=== PATIENT | male | born 1955 | race Caucasian/White ===

== ENCOUNTER 2023-09-19 17:07 | Observation (INO) | payer MEDICARE, SELFPAY ==
[2023-09-19] VITALS (10 sets, daily range): BP systolic 139–181; BP diastolic 74–105; PULSE 58–93; RESP 16–30; TEMP 36.2–36.8; O2SAT 95–98; BMI 24.4
--- NOTE | 2023-09-19 06:59 | DI.MRI.S_ITS ---
PROCEDURE: MR HEAD/BRAIN WO CON INDICATIONS: TIA TECHNIQUE: Non-contrast axial T1 spin echo, axial T2 fast spin echo, sagittal and axial FLAIR, coronal T2 fast spin echo, axial gradient echo, axial diffusion and ADC through the brain. COMPARISON: [facility], CT, CT ANGIO HEAD AND NECK, 09/19/2023, 17:26. [facility], CT, CT HEAD/BRAIN WO CON, 09/19/2023, 17:26. FINDINGS: Image quality: Excellent. CSF spaces: Ventricles appear symmetric in size and shape. Basal cisterns are patent. No extra-axial fluid collections. Brain: No intracranial bleeds or mass effects. There is cerebral volume loss for age. There are periventricular white matter T2 hyperintensity, most likely secondary to chronic small vessel ischemic changes. Brainstem appears normal. Diffusion-weighted images show no acute infarct. No chronic ischemic insults. Normal intravascular flow voids are present. Skull and face: Calvarial bone marrow is normal in signal. Orbits are normal. Sinuses: Mild ethmoid and maxillary sinus mucosal thickening. The mastoids are clear. IMPRESSION: 1. No acute intracranial abnormalities. 2. Cerebral volume loss. There are foci of T2 hyperintensity, most likely secondary to chronic microvascular ischemic changes. A differential diagnosis is a demyelinating process such as multiple sclerosis. Recommend clinical correlation and comparison to prior exams, if available. 3. Mild paranasal sinus disease. Dictated by: Charisse Partida M.D. on 09/20/2023 at 7:46 Approved by: Charisse Partida M.D. on 09/20/2023 at 7:50
--- NOTE | 2023-09-19 17:18 | DI.CT.S_ITS ---
PROCEDURE: CT ANGIO HEAD AND NECK INDICATIONS: forgetful TECHNIQUE: After the administration of intravenous contrast, 1 mm thick sections acquired from the aortic arch through the [place] of [place]. 3-dimensional egrgwpf-pjpvtddqq-wuvkcvdkgj (MIP) and/or volume rendering reformats were acquired of the central intracranial vasculature and neck separately. For radiation dose reduction, the following was used: automated exposure control, adjustment of mA and/or kV according to patient size. COMPARISON: None. FINDINGS: Image quality: Diagnostic. BRAIN: Please refer to same day CT head. HEAD CT ANGIOGRAPHY: Anterior circulation: Intracranial internal carotid arteries are normal in size and flow with atherosclerotic calcifications. The flow within the paired anterior cerebral arteries is normal and symmetric. The flow within the middle cerebral arteries is normal and symmetric. The anterior communicating artery is seen. No aneurysms are seen. Posterior circulation: Visualized portions of the vertebral arteries demonstrate normal caliber, and join to form a normal appearing basilar artery. origin of the right [employer] REPRESENTATIVE Flow within the posterior cerebral arteries is normal and symmetric. No aneurysms are seen. NECK CT ANGIOGRAPHY: Carotid system: The great vessels demonstrate a conventional anatomy as they arise from the aortic arch. The origins of the common carotid arteries appear patent. The common carotid arteries demonstrate normal caliber and courses. The bifurcation regions are both widely patent. The internal carotid arteries demonstrate normal calibers and courses. Posterior circulation: The origins of the vertebral arteries both appear widely patent. The more superior extracranial portions of both vertebral arteries also demonstrate normal courses and calibers. They join to form a normal appearing basilar artery. Soft tissues: Visualized neck soft tissues demonstrate no suspicious abnormalities. Bones: No suspicious bony lesions. Degenerative changes of the spine. Visualized cervical spine appears normally aligned. IMPRESSION: No significant intracranial arterial abnormality is seen. No significant abnormality is seen within the arteries of the neck. Any quantitative measurements of stenosis were performed using NASCET criteria. Dictated by: Clive Weston M.D. on 09/19/2023 at 18:14 Approved by: Clive Weston M.D. on 09/19/2023 at 18:19
--- NOTE | 2023-09-19 17:18 | DI.CT.S_ITS ---
PROCEDURE: CT HEAD/BRAIN WO CON INDICATIONS: forgetfullness TECHNIQUE: Noncontrast 4.5 mm thick angled axial sections acquired from the foramen magnum to the vertex, with coronal and sagittal reformats. For radiation dose reduction, the following was used: automated exposure control, adjustment of mA and/or kV according to patient size. COMPARISON: None. FINDINGS: Image quality: Diagnostic. CSF spaces: Basal cisterns are patent. No extra-axial fluid collections. The ventricles are symmetric in size and shape. Brain: No intracranial bleeds or masses. There is cerebral volume loss for age, with resultant ventricular and sulcal prominence. There are periventricular and deep white matter chronic small vessel ischemic changes. There is intracranial internal carotid artery atherosclerosis. Skull and face: Calvarium and visualized facial bones appear intact, without suspicious lesions. Sinuses: Partial opacification of the right paranasal sinuses. The mastoids are clear. IMPRESSION: No acute intracranial pathology. Dictated by: Clive Weston M.D. on 09/19/2023 at 18:13 Approved by: Clive Weston M.D. on 09/19/2023 at 18:14
[2023-09-19 17:31] LABS: Add Manual Diff / Slide Review NO; Basophils Absolute Auto 0 /uL (0-100); Basophils Percent Auto 0.4 % (0-2); Eosinophils Absolute Auto 200 /uL (0-450); Eosinophils Percent Auto 1.9 % (2-4); Hematocrit 39.5 % (41-53); Hemoglobin 12.7 g/dL (13.5-17.5); Lymphocytes Absolute Auto 1000 /uL (1100-4500); Lymphocytes Percent Auto 10.4 % (25-40); Mean Corpuscular HGB Conc 32.2 % (30-36); Mean Corpuscular Hemoglobin 26.6 PG (26-34); Mean Corpuscular Volume 82.5 fL (80-100); Monocytes Absolute Auto 600 /uL (0-900); Monocytes Percent Auto 6.9 % (3-14); Neutrophils Absolute Auto 7600 /uL (1500-7000); Neutrophils Percent Auto 80.4 % (50-75); Platelet Count 304 X10^3/uL (150-400); Red Blood Cell Count 4.79 X10^6/uL (4.5-5.9); Red Cell Distribution Width 13.4 % (11.6-14.8); White Blood Cell Count 9.4 X10^3/uL (4.5-11.0)
[2023-09-19 17:34] LABS: INR 1.1 (0.9-1.3); Prothrombin Time 12.1 SECONDS (9.4-12.5)
[2023-09-19 17:36] LABS: PTT Partial Thromboplastin Tim 34 SECONDS (25.1-36.5)
[2023-09-19 17:38] LABS: Alanine Aminotransferase 19 IU/L (<50); Albumin 4.2 g/dL (3.5-5.0); Albumin Globulin Ratio 1.4 (1.0-2.8); Alkaline Phosphatase 82 U/L (38-126); Aspartate Aminotransferase 25 IU/L (17-59); Bilirubin Total 0.8 mg/dL (0.2-1.3); Blood Urea Nitrogen 16 mg/dL (9-20); Calcium 9.1 mg/dL (8.4-10.2); Carbon Dioxide 22 mmol/L (22-32); Chloride 109 mmol/L (98-107); Creatine Kinase 189 U/L (55-170); Estimated Glomerular Filt Rate > 60 mL/min (>60); Ethanol (ETOH) < 10 mg/dL; Globulin 3.1 g/dL (1.7-4.1); Glucose 114 mg/dL (80-110); HEMOLYSIS < 15 (0-50); Potassium 3.5 mmol/L (3.4-5.1); Sodium 140 mmol/L (137-145); Total Protein 7.3 g/dL (6.3-8.2)
[2023-09-19 17:43] LABS: COVID19 -Nasal RAPID Negative (Negative)
[2023-09-19 17:49] LABS: Troponin I < 0.012 ng/mL (0.01-0.034)
--- NOTE | 2023-09-19 18:15 | ED_ITS ---
HPI - Neuro Symptoms/Deficit General Chief Complaint: Neuro Symptoms/Deficit Stated Complaint: forgetfulness/ BP 185/105 Time Seen by Provider: 09/19/23 17:18 Source: patient Mode of arrival: Ambulatory History of Present Illness HPI Narrative: 68-year-old male with history of ulcerative colitis, history of hypertension currently untreated with complaint of confusion which after description sounds like expressive aphasia. Started around noon patient family both noticed he was not able to say what he wanted to. Patient states he knew what he wanted to say could not get it out. They checked blood pressure at home was 185/105. He has had 1 prior episode 3 or 4 years ago where he was very hypertensive and they believe he a seizure and did not quite wake up? patient states he has not had any more episodes like that. He describes a mild headache today no vision changes no numbness tingling or weakness, no issues with balance. States no obvious facial droop. No slurred speech according to him and family. Chest pain, no nausea or vomiting, new issues with bowel movements or urination patient states he is on medication for ulcerative colitis. No anticoagulants. Was taking antihypertensives until 6 months ago in his physician said his blood pressure was appropriate and did not need them. He has never been on any dyslipidemia medication or diabetes medication. Patient does not smoke, occasional alcohol, no recreational drugs. On Anticoagulants: No Related Data Home Medications Medication Instructions Recorded Confirmed huvxjw-bxgeboin-odnrynn 1 cap PO TIDWMEAL 09/19/23 09/19/23 24,000-76,000-120,000 unit capsule,delayed rel (Creon) omeprazole 20 mg capsule,delayed 40 mg PO QAM 09/19/23 09/19/23 release Allergies Allergy/AdvReac Type Severity Reaction Status Date / Time No Known Drug Allergies Allergy Verified 09/19/23 18:51 Review of Systems Review of Systems ROS Unobtainable: All systems reviewed & are unremarkable except as noted in HPI and below Hematologic/Lymphatic On Anticoagulants: No Patient History Social History household members: spouse Smoking Status: Never smoker Smoking Status: Never smoker alcohol intake frequency: a few times a month Substance Use Type: does not use Exam Narrative Exam Narrative: GEN: well nourished, well appearing male, alert and oriented x 3, patient appears to be in mild distress. HEENT: Atraumatic, pupils are equal round reactive to light, extraocular movements are intact, nares are clear, TMs are clear with no fluid, there is no conjunctival pallor. Throat is clear without any exudates, erythema, tonsillar enlargement or uvular deviation, no facial droop. HEART: Regular rate and rhythm without murmur, clicks, rubs. LUNGS:Lungs clear to auscultation, no wheezes, rales, crackles, chest moves symmetrically ABD:bowel sounds normal, soft, non-tender, no guarding, rebound, rigidity, no masses noted, no hepatosplenomegaly MSCL: Non-tender, no muscle atrophy, muscles strength 5/5 upper and lower extremities, full range of motion, normal gait NEURO:CN 2-12 intact, sensation normal, reflexes 2/4 upper and lower extremities. finger nose finger test normal, heel jones test normal Initial Vital Signs Initial Vital Signs: Vital Signs Pulse Rate 83 09/19/23 17:14 Respiratory Rate 18 09/19/23 17:14 Scores NIH Stroke Scale Level of Conciousness: Alert, keenly responsive Ask month/age: Answers both questions correctly. Open/close eyes, close hand: Performs both tasks correctly Best gaze horizontal: Normal Visual montes: No visual loss Facial palsy: Normal symetrical movement Left arm drift: No drift for full 10 sec Right arm drift: No drift for full 10 sec Left leg drift: No drift for full 5 sec Right leg drift: No drift for full 5 sec Limb ataxia: Absent Sensory on face/arms/legs: Normal, no sensory loss Best language: No aphasia, normal Dysarthria: Normal Extinction or inattention: No abnormality Total NIH Stroke scale score: 0 Course Orders Ordered: ED Orders 09/19/23 17:18 CT angio head and neck Stat CT head/brain wo con Stat EKG-12 Lead Stat 09/19/23 17:19 Complete Blood Count AUTO DIFF Stat Comprehensive Metabolic Panel Stat Ethanol (ETOH) Stat PTT Partial Thromboplastin Jovanni Stat Prothrombin Time INR Stat Troponin & CK Cardiac Panel Stat 09/19/23 17:25 COVID19 -Nasal RAPID Stat 09/19/23 21:30 Urine Drug Screen, Rapid Stat Acetaminophen (Acetaminophen 325 Mg Tablet) 650 mg PO Q6H PRN PRN Reason: Fever/Mild Pain (1-3) Albuterol (Albuterol 2.5 Mg/3 Ml Neb (Adult)) 2.5 mg INH [id number] PRN PRN Reason: Dyspnea Lipase/Protease/Amylase (Lipase/Protease/Amylase 11/05/23 Cap) 1 cap PO TIDWM [facility] Aspirin (Aspirin Ec 81 Mg Tablet) 81 mg PO DAILY [facility] Benzonatate (Benzonatate 100 Mg Capsule) 100 mg PO TID PRN PRN Reason: Cough Calcium Carbonate (Calcium Carbonate 500 Mg Tab) 1,000 mg PO Q4HR PRN PRN Reason: Dyspepsia Sodium Chloride (Normal Saline 0.9%) 1,000 mls @ 100 mls/hr IV CONT AYSE Last Admin: 09/19/23 19:28 Dose: 100 mls/hr Documented By: AT Melatonin (Melatonin 3 Mg Tablet) 9 mg PO BEDTIME PRN PRN Reason: insomnia Naloxone HCl (Naloxone 0.4 Mg/Ml Vial) 0.2 mg IV Q2MIN PRN PRN Reason: Opiate Reversal Ondansetron HCl (Ondansetron 4 Mg/2 Ml Inj) 4 mg IV Q8HR PRN PRN Reason: Nausea And Vomiting Pantoprazole Sodium (Pantoprazole Dr 40 Mg Tablet) 40 mg PO 0600 [facility] Discontinued Medications Aspirin (Aspirin 81 Mg Chew Tab) 324 mg PO NOW ONE Stop: 09/19/23 18:38 Last Admin: 09/19/23 18:45 Dose: 324 mg Documented By: CHUY Vital Signs Vital signs: Vital Signs - 8 hr 09/19/23 17:14 09/19/23 17:15 09/19/23 17:15 Temperature Pulse Rate 83 86 Respiratory Rate 18 18 Blood Pressure 181/105 H Pulse Oximetry 97 Oxygen Delivery Method 09/19/23 17:16 09/19/23 17:26 09/19/23 17:26 Temperature 98.2 F Pulse Rate 83 93 H Respiratory Rate 18 16 Blood Pressure 181/105 H 159/77 H Pulse Oximetry 95 98 Oxygen Delivery Method Room Air 09/19/23 17:30 09/19/23 17:30 09/19/23 17:48 Temperature Pulse Rate 93 H Respiratory Rate 30 H Blood Pressure 154/87 H 171/87 H Pulse Oximetry 98 Oxygen Delivery Method 09/19/23 17:48 09/19/23 18:00 09/19/23 18:00 Temperature Pulse Rate 82 87 Respiratory Rate 21 22 Blood Pressure 170/87 H Pulse Oximetry 98 98 Oxygen Delivery Method 09/19/23 18:30 09/19/23 18:30 Temperature Pulse Rate 79 Respiratory Rate 17 Blood Pressure 159/93 H Pulse Oximetry 98 Oxygen Delivery Method Room Air MDM - Neuro Symptoms/Deficit Lab Data 09/19/23 17:19 09/19/23 17:19 Labs: Lab Results 09/19/23 09/19/23 Range/Units 17:19 17:25 WBC 9.4 (4.5-11.0) X10^3/uL RBC 4.79 (4.5-5.9) X10^6/uL Hgb 12.7 L (13.5-17.5) g/dL Hct 39.5 L (41-53) % MCV 82.5 (80-100) fL MCH 26.6 (26-34) PG MCHC 32.2 (30-36) % RDW 13.4 (11.6-14.8) % Plt Count 304 (150-400) X10^3/uL Neut % (Auto) 80.4 H (50-75) % Lymph % (Auto) 10.4 L (25-40) % [place] % (Auto) 6.9 (3-14) % Eos % (Auto) 1.9 L (2-4) % Baso % (Auto) 0.4 (0-2) % Neut # (Auto) 7600 H (3956-3176) /uL Lymph # (Auto) 1000 L (7831-8743) /uL [place] # (Auto) 600 (0-900) /uL Eos # (Auto) 200 (0-450) /uL Baso # (Auto) 0 (0-100) /uL PT 12.1 (9.4-12.5) SECONDS INR 1.1 (0.9-1.3) APTT 34 (25.1-36.5) SECONDS Sodium 140 (137-145) mmol/L Potassium 3.5 (3.4-5.1) mmol/L Chloride 109 H (98-107) mmol/L Carbon Dioxide 22 (22-32) mmol/L BUN 16 (9-20) mg/dL Creatinine 1.07 (0.66-1.25) mg/dL Estimated GFR > 60 (>60) mL/min BUN/Creatinine Ratio 15.0 (6-22) Glucose 114 H (80-110) mg/dL Calcium 9.1 (8.4-10.2) mg/dL Total Bilirubin 0.8 (0.2-1.3) mg/dL AST 25 (17-59) IU/L ALT 19 (<50) IU/L Alkaline Phosphatase 82 (38-126) U/L Total Creatine Kinase 189 H (55-170) U/L Troponin I < 0.012 (0.01-0.034) ng/mL Total Protein 7.3 (6.3-8.2) g/dL Albumin 4.2 (3.5-5.0) g/dL Globulin 3.1 (1.7-4.1) g/dL Albumin/Globulin Ratio 1.4 (1.0-2.8) Triglycerides 39 (35-150) mg/dL Cholesterol 118 L (140-199) mg/dL LDL Cholesterol, Calc 35 (<100) mg/dL HDL Cholesterol 75 H (40-60) mg/dL TSH 1.84 (0.47-4.68) uIU/mL Ethyl Alcohol < 10 ( - 10) mg/dL SARS-CoV-2 (PCR) Negative (Negative) Point of Care Testing Glucose POC [address] scan - head: Radiologist's Impression: Close Head/Neck CTA 09/19/[address] (Signed) Clive Weston - 09/19/23 Launch?[place] [address] CT Scan Report Signed Patient: Gino Menjivar MR#: [id number] : 1955 Acct:[id number] Age/Sex: 68 / M Date of Service: 09/19/23 Loc: ED Accession Number: [id number] Procedure: CT head/brain wo con Ordering Provider: Tameka Heart D.O. PROCEDURE: CT HEAD/BRAIN WO CON INDICATIONS: forgetfullness TECHNIQUE: Noncontrast 4.5 mm thick angled axial sections acquired from the foramen magnum to the vertex, with coronal and sagittal reformats. For radiation dose reduction, the following was used: automated exposure control, adjustment of mA and/or kV according to patient size. COMPARISON: None. FINDINGS: Image quality: Diagnostic. CSF spaces: Basal cisterns are patent. No extra-axial fluid collections. The ventricles are symmetric in size and shape. Brain: No intracranial bleeds or masses. There is cerebral volume loss for age, with resultant ventricular and sulcal prominence. There are periventricular and deep white matter chronic small vessel ischemic changes. There is intracranial internal carotid artery atherosclerosis. Skull and face: Calvarium and visualized facial bones appear intact, without suspicious lesions. Sinuses: Partial opacification of the right paranasal sinuses. The mastoids are clear. IMPRESSION: No acute intracranial pathology. Dictated by: Clive Weston M.D. on 09/19/2023 at 18:13 Approved by: Clive Weston M.D. on 09/19/2023 at 18:14 CTA - brain/neck: Radiologist's Impression: Gino Menjivar??68??M??1955 ? Allergy/Adv: Not Recorded Close Head/Neck CTA (Signed) Clive Weston - 09/19/[address] (Signed) Clive Weston - 09/19/23 Launch?[place] [address] CT Scan Report Signed Patient: Gino Menjivar MR#: [id number] : 1955 Acct:[id number] Age/Sex: 68 / M Date of Service: 09/19/23 Loc: Accession Number: [id number] Procedure: CT angio head and neck Ordering Provider: Tameka Heart D.O. PROCEDURE: CT ANGIO HEAD AND NECK INDICATIONS: forgetful TECHNIQUE: After the administration of intravenous contrast, 1 mm thick sections acquired from the aortic arch through the [place] of [place]. 3-dimensional erylixn-ifxhcmwyx-jstvldbdza (MIP) and/or volume rendering reformats were acquired of the central intracranial vasculature and neck separately. For radiation dose reduction, the following was used: automated exposure control, adjustment of mA and/or kV according to patient size. COMPARISON: None. FINDINGS: Image quality: Diagnostic. BRAIN: Please refer to same day CT head. HEAD CT ANGIOGRAPHY: Anterior circulation: Intracranial internal carotid arteries are normal in size and flow with atherosclerotic calcifications. The flow within the paired anterior cerebral arteries is normal and symmetric. The flow within the middle cerebral arteries is normal and symmetric. The anterior communicating artery is seen. No aneurysms are seen. Posterior circulation: Visualized portions of the vertebral arteries demonstrate normal caliber, and join to form a normal appearing basilar artery. origin of the right [employer]OVEL[employer] CANDY [employer]KER Flow within the posterior cerebral arteries is normal and symmetric. No aneurysms are seen. NECK CT ANGIOGRAPHY: Carotid system: The great vessels demonstrate a conventional anatomy as they arise from the aortic arch. The origins of the common carotid arteries appear patent. The common carotid arteries demonstrate normal caliber and courses. The bifurcation regions are both widely patent. The internal carotid arteries demonstrate normal calibers and courses. Posterior circulation: The origins of the vertebral arteries both appear widely patent. The more superior extracranial portions of both vertebral arteries also demonstrate normal courses and calibers. They join to form a normal appearing basilar artery. Soft tissues: Visualized neck soft tissues demonstrate no suspicious abnormalities. Bones: No suspicious bony lesions. Degenerative changes of the spine. Visualized cervical spine appears normally aligned. IMPRESSION: No significant intracranial arterial abnormality is seen. No significant abnormality is seen within the arteries of the neck. Any quantitative measurements of stenosis were performed using NASCET criteria. Dictated by: Clive Weston M.D. on 09/19/2023 at 18:14 Approved by: Clive Weston M.D. on 09/19/2023 at 18:19 ECG Data Attestation: I personally reviewed and interpreted this ECG as follows: Prior ECG tracings: not available for review Interpretation: Sinus rhythm rate of 94 ND 190 QRS of 90 QTC of 470. No acute ST elevation or depression. Left axis deviation. No prior for comparison. MDM Narrative Medical decision making narrative: This is a 68-year-old male with history of ulcerative colitis, hypertension no longer treated under direction of his physician and a prior seizure that family believes was related to hypertension proximally 3 or 4 years ago. Patient and family describe expressive aphasia earlier today starting around noon which has since improved. On exam he has not NIH of 0. He was hypertensive on arrival has been decreasing over time without intervention. Patient I suspect had a TIA. Patient is not candidate for tpa with resolution of symptoms and timeframe. Labs show a white count of 9.4 hemoglobin of 12 platelets of 304 INR 1 glucose of 114 sodium of 140 potassium 3 5 chloride of 109 CO2 of 22 with a BUN of 16 and a creatinine of 1.07 LFTs are negative, troponins Negative ETOH is negative COVID negative. EKG shows no acute change Head CT shows right paraspinal sinusitis, CT angio shows no acute vessel changes. Aspirin 324 mg was given. Discussed with patient he is agreeable for observation. Spoke with Dr. Mcguire who accepts for observation. Discharge Plan Departure Patient Disposition: Admitted as Observation Clinical Impression: Transient cerebral ischemia Admit Date/Time: 09/19/23 18:35 Admit Provider: Wilber Mcguire
[2023-09-19] MEDS: ASPIRIN 81 MG CHEW TAB 324 MG PO (18:45)
--- NOTE | 2023-09-19 18:53 | DI.ECHO.S_ITS ---
[facility] +---------+ : : [address] : : : : [id number] : : : : Phone: [phone]+ Echocardiogram Report + + :Name: MAGALYS AGUILAR Study Date: 09/20/2023 Height: 73 in : :[facility] ReadingLocation: Weight: 185 lb : : Gender: Male BSA: 2.1 m2 : :: 1955 Age: 68 yrs BP: 136/86 mmHg: :Reason For Study: TIA : :Ordering Physician: MILVIA, : :JOSTIN Performed By: Светлана Lynch : :Referring: JOSTIN STEEL : + + Interpretation Summary Borderline concentric left ventricular hypertrophy with ejection fraction 60- 65%. No significant valvular abnormality. Procedure: A two-dimensional transthoracic echocardiogram with color flow and Doppler was performed. The study quality was technically adequate. There is no prior echocardiogram noted for this patient. The patient was in sinus rhythm with heart rates between 52-65 bpm during the exam. Left Ventricle: The left ventricle is normal in size. There is borderline concentric left ventricular hypertrophy. The ejection fraction is estimated to be 60-65%. There are no focal wall motion abnormalities. Diastolic parameters suggest probable normal left ventricular diastolic function and normal filling pressures. Right Ventricle: The right ventricle is normal in size and function. Atria: The left atrial size is normal. Right atrial size is normal. There is no Doppler evidence for an interatrial shunt. Mitral Valve: The mitral valve is normal in structure and function. There is trace mitral regurgitation. Aortic Valve: The aortic valve is trileaflet. The aortic valve opens well. The aortic valve is slightly calcified. There is no aortic valve stenosis. There is trace aortic regurgitation. Tricuspid Valve: The tricuspid valve is normal in structure and function. There is mild tricuspid regurgitation. The right ventricular systolic pressure is estimated to be at least 27 mmHg based on an estimated right atrial pressure of 3 mm Hg. Pulmonic Valve: The pulmonic valve leaflets are thin and pliable; valve motion is normal. There is mild pulmonic regurgitation. Great Vessels: The aortic root is normal size. The dimensions of the ascending aorta are normal. The IVC is of normal diameter and collapses greater than 50% with a sniff. This suggests a low right atrial pressure of 3 mm Hg. Pericardium/ Pleura There is no pericardial effusion. There is no pleural effusion. MMode/2D Measurements & Calculations LVIDd: 4.1 cm LVOT diam: 2.1 cm LVIDs: 2.6 cm Ao root diam: 3.5 cm FS: 36.3 % asc Aorta Diam: 3.6 cm EPSS: 0.96 cm Ao Arch Diam (Prox Trans): 3.3 cm IVSd: 1.2 cm LVPWd: 1.1 cm LV sanchez. diameter/BSA (cm/m^2): 2.0 LV sys. diameter/BSA (cm/m^2): 1.2 LA A2 area: 24.5 cm2 RA long axis: 6.2 cm LA A4 area: 17.8 cm2 RA area: 19.1 cm2 LA length (vol): 5.8 cm RA vol: 50.4 ml LA vol: 63.7 ml RA : 24.2 ml/m2 LA vol index: 30.6 ml/m2 IVC diam: 1.4 cm RVD1 (basal): 2.7 cm RVD2 (mid): 2.2 cm TAPSE: 2.3 cm Doppler Measurements & Calculations Ao V2 max: 124.3 cm/sec LVOT Max Jorje: 111.9 cm/sec Ao V2 mean: 98.1 cm/sec LV V1 max P.0 mmHg Ao max P.2 mmHg LV V1 VTI: 26.7 cm Ao mean P.1 mmHg ANGELIQUE(I,D): 3.2 cm2 Ao V2 VTI: 30.3 cm ANGELIQUE(V,D): 3.3 cm2 sev ratio: 0.88 ANGELIQUE indexed to BSA (cm^2/m^2): 1.5 MV E max jorje: 60.6 cm/sec TR max jorje: 245.4 cm/sec MV A max jorje: 61.4 cm/sec TR max P.1 mmHg MV E/A: 0.99 PA V2 max: 89.0 cm/sec Med Peak E' Jorje: 6.0 cm/sec PA V2 mean: 65.8 cm/sec E/E' med: 10.1 PA mean P.8 mmHg Lat Peak E' Jorje: 7.1 cm/sec PA pr(Accel): 39.6 mmHg E/E' lat: 8.5 E/e' average: 9.3 MV dec time: 0.23 sec SV(LVOT): 97.0 ml Electronically signed by: Geovany Vega on Reading Physician:09/20/2023 09:49 AM
[2023-09-19 19:04] LABS: Urine Volume Low Vol <10mL (spun)
[2023-09-19 19:05] LABS: Bacteria Urine None Seen; Culture Indicated Urine Cult Not Indicated; RBC Urine None Seen (0-5/HPF); Squamous Epithelial Cell Urine None Seen (0-5/HPF); WBC Urine None Seen (0-5/HPF)
[2023-09-19] MEDS: SODIUM CHLORIDE 0.9% 1,000 ML 100 ML IV (19:28)
--- NOTE | 2023-09-19 20:29 | P.HP_ITS ---
History of Present Illness History of Present Illness Chief complaint: forgetfulness/ BP 185/105 Narrative: 68 years old male with history of hypertension, ulcerative colitis, seizure presents to the ER with aphasia around 3 hours resolved completely in the ED. The patient was not able to find his words and his blood pressure was 185/105. He had similar episodes around 4 years ago when he had seizure presumably due to elevated blood pressure. He was on seizure medication, stopped 6 months ago. Denies any headache, blurry vision, facial droop, weakness or numbness of his extremities or loss of balance. He complains of neck pain due to lifting heavy boxes recently. Denies any chest pain, palpitations, loss of consciousness, nausea, shortness of breath, fever or diarrhea. Denies any smoking, alcohol abuse or drug abuse. Not on any aspirin. In the ER his CT angiogram of head and neck was unremarkable. EKG shows normal sinus rhythm. Laboratory was reassuring. Platelets 123 was 129/82. Denies any symptoms currently. [facility] Social History household members: spouse Smoking Status: Never smoker Meds Home Medications and Allergies Home Medications Medication Instructions Recorded Confirmed Type [id number] 1 cap PO TIDWMEAL 09/19/23 09/19/23 History 24,000-76,000-120,000 unit capsule,delayed rel (Creon) omeprazole 20 mg capsule,delayed 40 mg PO QAM 09/19/23 09/19/23 History release Allergies Allergy/AdvReac Type Severity Reaction Status Date / Time No Known Drug Allergies Allergy Verified 09/19/23 18:51 Review of Systems Review of Systems ROS: Yes All systems reviewed with the patient and are negative except as otherwise documented Constitutional Constitutional: Reports as per HPI and Reports system reviewed and no additional complaints, except as documented Eyes Eyes: Reports as per HPI and Reports system reviewed and no additional complaints, except as documented ENT Ears, Nose, Mouth, and Throat: Yes as per HPI and Yes system reviewed and no additional complaints, except as documented Cardiovascular Cardiovascular: Reports system reviewed and no additional complaints, except as documented Respiratory Respiratory: Reports system reviewed and no additional complaints, except as documented Gastrointestinal Gastrointestinal: Reports system reviewed and no additional complaints, except as documented Genitourinary Genitourinary: Reports system reviewed and no additional complaints, except as documented Musculoskeletal Musculoskeletal: Reports system reviewed and no additional complaints, except as documented, Reports abnormal gait and Reports numbness Neurologic Neurologic: Reports system reviewed and no additional complaints, except as documented, Reports abnormal gait, Reports confusion and Reports numbness Psychiatric Psychiatric: Reports system reviewed and no additional complaints, except as documented and Reports confusion Exam Vital Signs (past 8 hours): - 09/19/23 17:14 09/19/23 17:15 09/19/23 17:15 Temperature Pulse Rate 83 86 Respiratory Rate 18 18 Blood Pressure 181/105 H Pulse Oximetry 97 Oxygen Delivery Method 09/19/23 17:16 09/19/23 17:26 09/19/23 17:26 Temperature 98.2 F Pulse Rate 83 93 H Respiratory Rate 18 16 Blood Pressure 181/105 H 159/77 H Pulse Oximetry 95 98 Oxygen Delivery Method Room Air 09/19/23 17:30 09/19/23 17:30 09/19/23 17:48 Temperature Pulse Rate 93 H Respiratory Rate 30 H Blood Pressure 154/87 H 171/87 H Pulse Oximetry 98 Oxygen Delivery Method 09/19/23 17:48 09/19/23 18:00 09/19/23 18:00 Temperature Pulse Rate 82 87 Respiratory Rate 21 22 Blood Pressure 170/87 H Pulse Oximetry 98 98 Oxygen Delivery Method 09/19/23 18:30 09/19/23 18:30 09/19/23 18:56 Temperature 97.1 F L Pulse Rate 79 62 Respiratory Rate 17 16 Blood Pressure 159/93 H 139/82 Pulse Oximetry 98 98 Oxygen Delivery Method Room Air Oxygen Delivery Method Room Air Const General: cooperative, comfortable and well developed Orientation: alert and oriented x3 HENMT Head: normal to inspection, normocephalic and atraumatic Face and sinus: normal facial exam Mouth: oral mucosae normal and moist mucous membranes Throat: posterior oropharynx normal Eyes General: appearance normal, both eyes and all related structures Pupils: PERRL EOM: EOM intact bilaterally Neck Neck: normal visual inspection and full ROM Chest Chest: normal inspection of the chest Resp Effort & Inspection: normal respiratory effort and able to speak in complete sentences Auscultation: clear to auscultation bilaterally Cardio Palpation: normal PMI Rate: regular rate Rhythm: regular rhythm Heart Sounds: S1 normal and S2 normal GI Inspection: normal to inspection Palpation: soft and no hepatosplenomegaly Auscultation: normal bowel sounds Skin General: no rashes or lesions noted Lesions: no lesions Rashes: no rashes Trauma: no lacerations or abrasions Neuro General: patient alert, patient awake, patient oriented x3 and no focal motor deficits Cranial Nerves: CN's II-XI intact bilaterally Cognition: normal cognition Speech: speech normal Gait: normal gait Motor: muscle tone normal throughout Sensory Exam: no sensory deficits noted Extrem General: full ROM and no calf tenderness Psych Appearance: grossly normal Mental Status: mental status grossly normal Speech and Movement: speech and movement normal Objective Labs 09/19/23 17:19 09/19/23 17:19 Labs: Laboratory Results - last 24 hr 09/19/23 09/19/23 09/19/23 17:19 17:25 18:50 WBC 9.4 RBC 4.79 Hgb 12.7 L Hct 39.5 L MCV 82.5 MCH 26.6 MCHC 32.2 RDW 13.4 Plt Count 304 Neut % (Auto) 80.4 H Lymph % (Auto) 10.4 L [place] % (Auto) 6.9 Eos % (Auto) 1.9 L Baso % (Auto) 0.4 Neut # (Auto) 7600 H Lymph # (Auto) 1000 L [place] # (Auto) 600 Eos # (Auto) 200 Baso # (Auto) 0 PT 12.1 INR 1.1 APTT 34 Sodium 140 Potassium 3.5 Chloride 109 H Carbon Dioxide 22 BUN 16 Creatinine 1.07 Estimated GFR > 60 BUN/Creatinine Ratio 15.0 Glucose 114 H Calcium 9.1 Total Bilirubin 0.8 AST 25 ALT 19 Alkaline Phosphatase 82 Total Creatine Kinase 189 H Troponin I < 0.012 Total Protein 7.3 Albumin 4.2 Globulin 3.1 Albumin/Globulin Ratio 1.4 Urine RBC None seen Urine WBC None seen Ur Squamous Epith Cells None seen Urine Bacteria None seen Ur Culture Indicated? Cult not indicated Vol Urine Centrifuged Low vol <10ml (spun) A Ethyl Alcohol < 10 SARS-CoV-2 (PCR) Negative Assessment & Plan Assessment & Plan narrative: TIA/CVA-patient seems to have a TIA which is recovering. Initial CT head and CT angiogram shows no obvious abnormality. -ASA, -Permissive hypertension, -ECHO, MRI brain -Telemetry monitoring, Serial neurochecks -Strict bedrest for now -Monitor hemodynamics -Check lipid panel in a.m., thyroid function test, blood sugar monitoring, -PT/OT and swallowing evaluation in a.m. -Sroke education -fall precaution Ulcerative colitis. Restart Creon with meals GERD. Restart omeprazole. Time Spent With Patient Time with patient: 50 to 69 minutes with 50% spent counseling/coordinating care Quality VTE Deep Vein Thrombosis/Pulmonary Embolism Present on Admission: No MIPS - Admit I confirm the patient?s Advance Care Plan is present, Code status is documented, Surrogate decision maker is in patient?s record [If Yes, STOP here]: Yes MIPS - Meds 'Current medications' to include all prescriptions, [id number] products, herbals, cannabis/cannabidiol products, and vitamin/mineral/dietary (nutritional) supplements. I have utilized all available resources to obtain, update, or review the patient?s current medications. [If Yes, STOP here]: Yes
[2023-09-19 21:12] LABS: Cholesterol 118 mg/dL (140-199); Triglycerides 39 mg/dL (35-150)
[2023-09-19 21:13] LABS: HDL Cholesterol 75 mg/dL (40-60); LDL Cholesterol Calculated 35 mg/dL (<100)
[2023-09-19 21:41] LABS: UR Morphine/Opiate cutoff 300 Negative (Negative); Ur Creatinine Normal (Normal); Ur Specific Gravity Normal (Normal); Urine Amphetamines Negative (Negative); Urine Barbiturates Negative (Negative); Urine Benzodiazepines Negative (Negative); Urine Cocaine Negative (Negative); Urine MDMA Negative (Negative); Urine Methadone Negative (Negative); Urine Methamphetamines Negative (Negative); Urine Oxycodone Negative (Negative); Urine Phencyclidine Negative (Negative); Urine Tetrahydrocannabinol Negative (Negative); Urine Tricyclic Antidepressant Negative (Negative); Urine pH Normal (Normal)
[2023-09-19 21:43] LABS: Thyroid Stimulating Hormone 1.84 uIU/mL (0.47-4.68)
[2023-09-20 05:15] VITALS: BP 136/86; PULSE 67; RESP 17; TEMP 36.5; O2SAT 97
[2023-09-20] MEDS: SODIUM CHLORIDE 0.9% 1,000 ML 100 ML IV (05:21)
[2023-09-20] MEDS: PANTOPRAZOLE DR 40 MG TABLET PO (05:21)
[2023-09-20] MEDS: ASPIRIN EC 81 MG TABLET PO (08:08)
[2023-09-20] MEDS: LIPASE/PROTEASE/AMYLASE 5/17/24 CAP PO (08:08)
[2023-09-20 08:31] VITALS: BP 152/91; PULSE 77; RESP 16; TEMP 36.1; O2SAT 98
--- NOTE | 2023-09-20 10:17 | P.DS_ITS ---
History of Present Illness History of Present Illness Date Patient Seen: 09/20/23 Time Patient Seen: 10:17 Chief complaint: forgetfulness/ BP 185/105 Narrative: Per admitting provider, 68 years old male with history of hypertension, ulcerative colitis, seizure presents to the ER with aphasia around 3 hours resolved completely in the ED. The patient was not able to find his words and his blood pressure was 185/105. He had similar episodes around 4 years ago when he had seizure presumably due to elevated blood pressure. He was on seizure medication, stopped 6 months ago. Denies any headache, blurry vision, facial droop, weakness or numbness of his extremities or loss of balance. He complains of neck pain due to lifting heavy boxes recently. Denies any chest pain, palpitations, loss of consciousness, nausea, shortness of breath, fever or diarrhea. Denies any smoking, alcohol abuse or drug abuse. Not on any aspirin. In the ER his CT angiogram of head and neck was unremarkable. EKG shows normal sinus rhythm. Laboratory was reassuring. Platelets 123 was 129/82. Denies any symptoms currently. Discharge Providers Provider Date of admission: 09/19/23 18:35 Discharge Date: 09/20/23 Primary care physician: Asim Gan MD Consults: 09/19/23 18:54 Consult to Discharge Planning Routine Comment: Consult to Occupational Therapy Evaluate & Treat Comment: Physician Instructions: Evaluate and treat Consult to Physical Therapy Evaluate & Treat Comment: Physician Instructions: Evaluate and Treat Consult to Speech Therapy Evaluate & Treat Comment: Physician Instructions: Evaluate and treat Discharge provider: Ayo Khan DO Summary Hospital Course Discharge Diagnosis: Aphasia, resolved Ulcerative colitis. GERD. Hospital Course: This is a 68 year old male with PMH of UC, GERD who presented after an episode of transient aphasia. MRI was negative for acute infarct. Echocardiogram was unremarkable with no evidence of PFO. He also reported heavy stress with moving recently and it is possible this contributed to his transient symptoms. Discussed risks and benefits of possible secondary prevention with the patient. His lipid profile is immaculate with an LDL of 35 and an elevated HDL. At this time, after the above discussion patient felt risks of secondary prevention medications outweigh any possible benefits and opted not to continue on aspirin and statin therapy after discharge. It is also not likely that this was a seizure based on presentation. I recommended ongoing discussion with his PCP to discuss possible secondary prevention. Attempted patient's ASCVD risk as well but unable to calculate with his LDL at 35. Time Spent with Patient Time spent: Greater than 30 minutes Exam Vital Signs (past 8 hours): - 09/20/23 05:15 09/20/23 08:31 Temperature 97.7 F 96.9 F L Pulse Rate 67 77 Respiratory Rate 17 16 Blood Pressure 136/86 152/91 H Pulse Oximetry 97 98 Oxygen Flow Rate 0 0 Oxygen Delivery Method Room Air Oxygen Flow Rate 0 Narrative Exam Narrative: General:? Patient is well developed and well nourished, in no distress at this time. Lungs:? CTA b/l no wheezing rhonchi or rales. Cardio:?RRR no m/r/g. Abdomen: S NT ND. Musculoskeletal:? Muscle strength and tone are equal within normal limits, no deformity. Extremities: No edema or joint effusions. No cyanosis or clubbing. Neuro:? Alert and orientated x3,? sensation to touch intact in all extremities, no gross deficits noted of cranial nerves. Psych:? Patient has a well-kept appearance, appropriate affect, mental status attitude thought context and judgment are appropriate for age. Objective Labs 09/19/23 17:19 09/19/23 17:19 Labs: Laboratory Results - last 24 hr 09/19/23 09/19/23 09/19/23 17:19 17:25 18:50 WBC 9.4 RBC 4.79 Hgb 12.7 L Hct 39.5 L MCV 82.5 MCH 26.6 MCHC 32.2 RDW 13.4 Plt Count 304 Neut % (Auto) 80.4 H Lymph % (Auto) 10.4 L [place] % (Auto) 6.9 Eos % (Auto) 1.9 L Baso % (Auto) 0.4 Neut # (Auto) 7600 H Lymph # (Auto) 1000 L [place] # (Auto) 600 Eos # (Auto) 200 Baso # (Auto) 0 PT 12.1 INR 1.1 APTT 34 Sodium 140 Potassium 3.5 Chloride 109 H Carbon Dioxide 22 BUN 16 Creatinine 1.07 Estimated GFR > 60 BUN/Creatinine Ratio 15.0 Glucose 114 H Calcium 9.1 Total Bilirubin 0.8 AST 25 ALT 19 Alkaline Phosphatase 82 Total Creatine Kinase 189 H Troponin I < 0.012 Total Protein 7.3 Albumin 4.2 Globulin 3.1 Albumin/Globulin Ratio 1.4 Triglycerides 39 Cholesterol 118 L LDL Cholesterol, Calc 35 HDL Cholesterol 75 H TSH 1.84 Urine RBC None seen Urine WBC None seen Ur Squamous Epith Cells None seen Urine Bacteria None seen Ur Culture Indicated? Cult not indicated Vol Urine Centrifuged Low vol <10ml (spun) A U Opiates 300ng/mL cut Ur Oxycodone Screen Urine Methadone Screen Ur Barbiturates Screen U Tricyclic Antidepress Ur Phencyclidine Scrn Ur Amphetamines Screen U Methamphetamines Scrn Ur MDMA Scrn (Ecstasy) U Benzodiazepines Scrn Urine Cocaine Screen U Marijuana (THC) Screen Urine pH Urine Specific [place] Ethyl Alcohol < 10 Ur Creatinine SARS-CoV-2 (PCR) Negative 09/19/23 21:30 WBC RBC Hgb Hct MCV MCH MCHC RDW Plt Count Neut % (Auto) Lymph % (Auto) [place] % (Auto) Eos % (Auto) Baso % (Auto) Neut # (Auto) Lymph # (Auto) [place] # (Auto) Eos # (Auto) Baso # (Auto) PT INR APTT Sodium Potassium Chloride Carbon Dioxide BUN Creatinine Estimated GFR BUN/Creatinine Ratio Glucose Calcium Total Bilirubin AST ALT Alkaline Phosphatase Total Creatine Kinase Troponin I Total Protein Albumin Globulin Albumin/Globulin Ratio Triglycerides Cholesterol LDL Cholesterol, Calc HDL Cholesterol TSH Urine RBC Urine WBC Ur Squamous Epith Cells Urine Bacteria Ur Culture Indicated? Vol Urine Centrifuged U Opiates 300ng/mL cut Negative Ur Oxycodone Screen Negative Urine Methadone Screen Negative Ur Barbiturates Screen Negative U Tricyclic Antidepress Negative Ur Phencyclidine Scrn Negative Ur Amphetamines Screen Negative U Methamphetamines Scrn Negative Ur MDMA Scrn (Ecstasy) Negative U Benzodiazepines Scrn Negative Urine Cocaine Screen Negative U Marijuana (THC) Screen Negative Urine pH Normal Urine Specific [place] Normal Ethyl Alcohol Ur Creatinine Normal SARS-CoV-2 (PCR) [facility] Social History household members: spouse Smoking Status: Never smoker Discharge Plan Discharge Plan Patient Disposition: Home Provider Discharge Comment: You were admitted to the hospital with a possible TIA or seizure or stress. At this time will not choose to start medications as if TIA. Recommend PCP follow up in the next couple of weeks to review hospitalization, blood pressure follow up, and possible preventative medications depending on how the next few weeks go. Try to keep a log of your blood pressure around the same time each day. Make sure to take your BP after resting for about 5 minutes and in a quiet environment. If elevated you may need to start a BP medication. No medication changes are recommended at this time. Discharge orders & Medications Prescriptions: Continued omeprazole 20 mg capsule,delayed release(DR/EC) 40 mg PO QAM Creon 24,000-76,000 -120,000 unit capsule,delayed release(DR/EC) 1 cap PO TIDWMEAL Follow up/Referrals: Asim Gan MD [Primary Care Provider] - Diet/Activity/Treatments Diet: Diet as Tolerated and Regular Activity: As tolerated no restrictions Visit Report/Discharge Packet Stand Alone Forms: Patient Portal/API, Stroke Signs & Symptoms Discharge Data Primary Care Provider: Asim Gan Attending Provider: Wilber Mcguire Admit Date/Time: 09/19/23 18:35 Quality VTE Deep Vein Thrombosis/Pulmonary Embolism Present on Admission: No
--- NOTE | 2023-09-20 11:02 | PT.IIE ---
Physical Therapy Inpatient Evaluation/Re-Eval M1 PT/OT-IP Prior Functional Status Start: 09/20/23 08:42 Freq: NEEDED Status: Active Protocol: Document 09/20/23 10:41 MB (Rec: 09/20/23 11:02 MB [id number]) Medical Review Prior Functional Status Medical History Reviewed Yes Communication Pt is an effective verbal communicator. Mobility and Gait Pt was IND in all ADLs without AD Activities of Daily Living and IADL's Pt was IND in all ADLs and IADLs at baseline. Pt is an active class b truck driver. Social History Household Members spouse Living Arrangements House Number of Floors (Floors) One Floor Number of Stairs To Enter/Railing? 1 step to enter without railings Home Environment Standard Height Toilet,Walk in Shower,Tub/Shower Home Equipment Hand Held Shower Employment Status Retired Additional Social History Comment Pt lives with his exwife and they were moving from [place] into a new house that they just purchased in [place]. M1 PT/OT-IP Prior Functional Status Start: 09/20/23 09:36 Freq: NEEDED Status: Active Protocol: Document 09/20/23 09:37 CGR (Rec: 09/20/23 09:43 CGR [id number]) Medical Review Prior Functional Status Medical History Reviewed Yes Communication Pt is an effective verbal communicator. Mobility and Gait Pt was IND in all ADLs without AD Activities of Daily Living and IADL's Pt was IND in all ADLs and IADLs at baseline. Pt is an active class b truck driver. Social History Household Members spouse Living Arrangements House Number of Floors (Floors) One Floor Number of Stairs To Enter/Railing? 1 step to enter without railings Home Environment Standard Height Toilet,Walk in Shower,Tub/Shower Home Equipment Hand Held Shower Employment Status Retired Additional Social History Comment Pt lives with his exwife and they were moving from [place] into a new house that they just purchased in [place]. M2 PT-IP Current Condition Start: 09/20/23 08:42 Freq: NEEDED Status: Active Protocol: Document 09/20/23 10:41 MB (Rec: 09/20/23 11:02 MB [id number]) Physical Therapy Current Condition Current Condition Evaluation Date 09/20/23 Treatment Diagnosis Trouble finding words M3 PT-IP Subjective Start: 09/20/23 08:42 Freq: NEEDED Status: Active Protocol: Document 09/20/23 10:41 MB (Rec: 09/20/23 11:02 MB [id number]) Subjective Physical Therapy Visit Type Type Initial Evaluation Visit Start Time 10:41 Visit Stop Time 10:55 Number of DRUG ABUSE PROGRAM COORDINATOR Visits 0 Physical Therapy Visit Comments Patient Comments Pt states he feels back to normal and it agreeable to PT M4 PT-IP Mobility and Gait Start: 09/20/23 08:42 Freq: NEEDED Status: Active Protocol: Document 09/20/23 10:41 MB (Rec: 09/20/23 11:02 MB [id number]) PT-Bed Mobility Assessment Rolling Type of Rolling Bilateral Level of Assist Independent Supine to Sit Supine to Sit Independent Sit to Supine Sit to Supine Independent Scooting Scooting to Edge of Bed Independent Scooting Up and Down in Bed Independent PT-Transfer Assessment Sit to and From Stand Sit to and from Stand Independent Equipment Transfer Assistive Device None Orthotic/Prosthetic Devices or Brace: No Transfers Transfer Destination Bed,Chair Transfer Technique Ambulation Transfer Ability Level of Assist Independent Comments Mobility Comments I with mobility Gait Assessment Gait Gait Assistance Required: Independent Distance (Feet) 200 Able to Maintain Weight Bearing Status No During Gait Assistive Devices Assistive Device None Orthotic/Prosthetic Devices or Brace: No Gait Deviations General Gait Pattern Within Normal Limits Comments Gait Comments Normal gait, no steps at home PT-Balance Assessment Sitting Balance and Reactions Static Sitting Balance Ability Normal Dynamic Sitting Balance Ability Normal Standing Balance and Reactions Static Standing Balance Ability Normal Dynamic Standing Balance Ability Normal M5 PT-IP Objective Assessments Start: 09/20/23 08:42 Freq: NEEDED Status: Active Protocol: Document 09/20/23 10:41 MB (Rec: 09/20/23 11:02 MB [id number]) Orientation Orientation/Cognition Level of Alertness Alert Orientation Name,Age,Birthday,Month,Date, Year,Day of Week,Place, Situation Language Function Ability No Deficits Noted Safety Awareness Understands Safety Issues Memory Description No Deficits Noted Gross Range of Motion Upper Extremity ROM Assessment Within Functional Limits Lower Extremity ROM Assessment Within Functional Limits Strength Upper Extremity Strength Assessment Within Functional Limits Lower Extremity Strength Assessment Within Functional Limits Coordination Assessment Gross Coordination Gross Coordination WNL Assessment Pronation/Supination Test Normal Performance Heel on Alan Test Normal Performance Sensation Assessment Sensation Gross Sensation WNL M6 PT-IP Treatment Start: 09/20/23 08:42 Freq: NEEDED Status: Active Protocol: Document 09/20/23 10:41 MB (Rec: 09/20/23 11:02 MB [id number]) Physical Therapy Treatment Other Treatments Other Treatment Performed Ed pt on benefits of following up with PCP given his recent move and now hospitalization for trouble finding words and history of HTN. PT also noted impression on brain MRI that stated consider demyelinating disease. M7 PT-IP Assessment and Plan Start: 09/20/23 08:42 Freq: NEEDED Status: Active Protocol: Document 09/20/23 10:41 MB (Rec: 09/20/23 11:02 MB [id number]) PT Summary Assessment and Plan Potential Rehabilitation Potential Excellent Status of Condition at Evaluation Stable Summary Progress Towards Goals Goals Met Assessment Summary Pt is a pleasant 68 y/o who just moved to [facility] and noted episode of inability to find words after having some anxiety about getting the move completed and getting in the car and driving his son back up to [place] to get the rest of their things. He has a history of HTN and reports he has been off his medication for a while per his PCP there. He was told to let the PCP know if his BP increased. PT notes brain MRI had impression to consider possible demyelinating process . This a.m., pt is no longer symptomatic and his mobility, strength and coordination are good. Recommend follow-up with OP PCP and no current PT needs. Frequency of Treatment Frequency Of Treatment Discharge Recommendations To Nursing Amount of Assist Needed Independent Discharge Recommendations PT Discharge Recommendations Home Transportation Needs at Discharge Private Vehicle
--- NOTE | 2023-09-20 11:49 | CM.DANOTE ---
Patient is a 68 yo male who was admitted OBS status on 09/19/23 for CVA vs TIA r/o. Pt has [facility] for insurance and his PCP is Dr. Asim Gan. EMR was reviewed. Per MD, pt with hx of colitis and seizure do and admitted to r/o CVA vs TIA. MRI was negative and to work with PT/OT/ST to confirm stable for discharge today. Per PT/OT, pt seems to be at baseline independence and recommending home at discharge. SW met briefly bedside with pt and explained role and he confirms he currently lives now at home in [place] with his supportive ex- and both are active and independent at baseline and pt still drives and does not use DME for ambulation. Pt states they have been in the process of moving from their home in [place] to a new home in [place] and the stress likely contributed to pt's symptoms. Pt denies any recent hx of HH or SNF and preference is to d/c home with family and does not anticipate any needs at discharge. Per MD, pt is medically stable to discharge home today and no barriers identified. Plan: Patient to discharge home today via family POV and outpt f/u and no further SW needs at this time. LEIDY Strong Discharge Planning/Care Management CM Discharge Assessment Start: 09/20/23 11:48 Freq: Status: Active Protocol: Document 09/20/23 11:48 BF (Rec: 09/20/23 11:49 BF [id number]) Discharge Planning Assessment Assigned Manager Customer Service LEIDY Chan DPOA/Assigned Designee Name Dtr Advance Directives? No Advance Directives on File No History Provided By Patient,Medical Record Has Patient been admitted in last 30 No days? Prior Living Arrangements House Household Members spouse Comment Lives with ex- Type of transporation used prior to Drives own vehicle admit Independent with ADL's Yes Is patient alert and oriented? Yes Caregiver for Another No Community Services used prior to Physical Therapy admission: DME Already Rented / Owned Cane Barriers to Discharge No Discharge Plan Home Transportation Arrangement Family to provide transport at d/c Referrals Initiated None needed Whiteboard Updated in Patient Room with Yes name and ext. # of Manager Customer Service Review Status In Process Please Provide Date Initial DC 09/20/23 Assessment Was Performed Next Review Type Continued Stay Review
--- NOTE | 2023-09-20 12:37 | PC.NURSE ---
Patient is A&OX4, VSS, afebrile on RA. He is independent in the room. NIH score zero and he denies any deficits. He is evaluated by PT and OT and cleared by MD for discharge home today. He verbalizes understanding of discharge plan, medications and acknowledges making follow up appointment with PCP. He is escorted by RN with all of his personal belongings to main entrance of the hospital for discharge home with family in private vehicle at 1212 pm.
== END 2023-09-20 12:12 | disposition home or self-care (01) ==
LOC: ED 18:19 → AC 18:36
PROVIDERS: Emergency Medicine; Internal Medicine; Admitting Provider Family Medicine; Emergency Provider Emergency Medicine; PCP Internal Medicine; Referring Provider Emergency Medicine; Visit Provider Family Medicine
DX: R47.01 Aphasia (principal); I10 Essential (primary) hypertension; R29.700 NIHSS score 0; K21.9 Gastro-esophageal reflux disease without esophagitis; Z11.52 Encounter for screening for COVID-19
CPT/HCPCS: 70450; 70496; 70498; 70551; 80053; 80061; 80305; 80320; 81003; 81015; 82550; 82962; 84443; 84484; 85025; 85610; 85730; 87635; 93005; 93010; 93306; 96360; 96361; 97161; 97165; 99284; G0378; A9270; Q9967